=== PATIENT | female | born 1940 | race Caucasian/White ===

== ENCOUNTER 2016-12-12 13:20 | Inpatient (IN) ==
[2016-12-12] MEDS ORDERED: HYDROmorphone 2 MG/1 ML VIAL IV STA (13:52)
[2016-12-12] MEDS ORDERED: ONDANSETRON 4 MG/2 ML VIAL IV STA (13:52)
[2016-12-12] MEDS ORDERED: ONDANSETRON 4 MG/2 ML VIAL ONE (14:34)
[2016-12-12] MEDS ORDERED: HYDROmorphone 2 MG/1 ML VIAL ONE (14:34)
--- NOTE | 2016-12-12 14:39 | Emergency Department Note ---
IYolie Brittany, am scribing for, and in the presence of, Kyung Hill DO 13: 56. ISergio Debra, DO, personally performed the services described in this documentation, ascribed by Corrine Urbano in my presence, and it is both accurate and complete 438 . Arrival - Arrival Chief Complaint: Non-Specific Stated Complaint: PAIN ED Nursing Triage Note: PATIENT TO ROOM VIA EMS. PATIENT C/O PAIN ALL OVER. WHEN PATIENT WAS MOVED FROM THE STRETCHER TO THE PAIN SHE SCREAMED. SHE STATES THAT SHE HURTS FROM HER FEET ALL THE WAY UP. Mode of Arrival: Stretcher Limitations: No Limitations Source: Patient Time Seen by Provider: 12/12/16 13:45 - History of Present Illness HPI Narrative: This is a 76 y/o white female,who presents to the ED by EMS with c/o "pain all over". She states the pain started last night. She states the pain is worse in the right hip, but starts at her feet and moves into both hips. She denies falling or injuring herself. She states she has arthritis. She states the pain got worse when they moved her from the stretcher into the hospital bed. Pt has no other complaints/pain in the ED at this time. Pt has a PMHx of depression, HTN, anxiety, dyslipidemia, GERD, arthritis, and chronic pain. Pt denies a surgical Hx. Pt denies a family medical Hx. Pt denies a social Hx. Onset (ago): hour(s) (Started last night) Consistency: constant Severity: moderate, similar to previous episodes Allergies/Adverse Reactions: Allergies Allergy/AdvReac Type Severity Reaction Status Date / Time No Known Allergies Allergy Verified 12/12/16 13:34 Home Medications: Home Medications Medication Instructions Recorded Confirmed Type Albuterol Sulfate [Proair HFA] 2 puff INH Q4H PRN 10/21/14 05/29/16 History Aspirin [Ecotrin] 81 mg PO DAILY 10/21/14 05/29/16 History Duloxetine HCl [Cymbalta] 60 mg PO BID 10/21/14 05/29/16 History Lisinopril/Hydrochlorothiazide 1 each PO DAILY 10/21/14 05/29/16 History [Lisinopril-Hctz 20-25 mg Tab] Meloxicam [Mobic] 15 mg PO DAILY 10/21/14 05/29/16 History Pravastatin [Pravachol] 40 mg PO BEDTIME 10/21/14 05/29/16 History Sertraline [Zoloft] 150 mg PO DAILY 10/21/14 05/29/16 History Tramadol HCl [Tramadol Tab] 50 mg PO TID PRN 10/21/14 05/29/16 History Gabapentin 300 mg PO TID 04/19/15 05/29/16 History Pantoprazole Tab [Protonix Tab] 40 mg PO DAILY 04/19/15 05/29/16 History Review of System - Review of System 12 point system: reviewed and no additional remarkable complaints except as stated - Review of System Review of Systems: Pain all over, starts at her feet and goes into the hips Medical,Surgical,& Family Hx - Medical History Cardio: History of: Hypertension Psychological: History of: Anxiety Disorders, Depression Endocrine: History of: Dyslipidemia Gastrointestinal: History of: GERD Musculoskeletal: History of: Musculoskeletal Problems (chronic pain) - Social History Smoking Status: Smoker, status unknown Frequency of Alcohol Use: None Type of Drug Use: None Exam Vital Signs: Vital Signs Temperature 98.3 F 12/12/16 13:30 Pulse Rate 112 H 12/12/16 13:30 Respiratory Rate 20 12/12/16 13:30 Blood Pressure 153/92 12/12/16 13:30 O2 Sat by Pulse Oximetry 98 12/12/16 13:30
--- NOTE | 2016-12-12 14:44 | XRay Report ---
XR hip 5V BI w pelvis Indication: Hip pain. Comparison: None. Technique: AP pelvis with additional AP views of the left and right hip in internal and frog-leg rotation. Findings: Severe bilateral femoral acetabular joint degenerative changes are demonstrated with flattening of the superior femoral heads as well as sclerotic bony changes. No acute fracture demonstrated. Impression: 1. 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 12/12/2016 2:41 PM PROCEDURE INTERPRETED AT [facility] DEPARTMENT OF RADIOLOGY Final Report Signed by: Dr. Tremayne Fajardo
[2016-12-12] MEDS ORDERED: ONDANSETRON 4 MG/2 ML VIAL IV PRN (15:17)
[2016-12-12] MEDS ORDERED: ALBUTEROL/IPRATROPIUM 3 ML NEB RESP TX PRN (15:24)
--- NOTE | 2016-12-12 16:01 | Hospitalist History & Physical ---
Assessment and Plan - Time spent with patient Time spent with patient: Greater than 30 minutes (1) Pain, generalized Status: Acute Assessment and plan: 12/12/16 - Generalized severe pain exacerbated with any form of movement/re- positioning. Hip/Pelvic xray: Impression: Severe osteonecrosis is noted bilaterally affecting the femoral acetabular joints. Labs are pending and urine collection with results are pending. Will admit for observation. Will repeat labs. Will consult Dr Castillo. Will consult orthopedics for evaluation. Current Visit: Yes History of Present Illness Chief complaint: pain, generalized more sever in bilateral hips History of present illness: Ms. Machuca is a 76 year old white female presented to [facility] ED for c/o "pain all over", more in her hips and back. PMHx: depression, hypertension, GERD, Arthritis, Chronic Back Pain, dyslipidemia, anxiety disorder , hiatal hernia. She reports that she has severe "unbearable" pain when she moves even with the smallest movements of repositioning. She reports chronic back pain but this pain today is more all over, especially in both hips and it has been much worse for the past couple of days. She wanted to come to the ED last night but her phone was not working. She reports having an appointment scheduled with Dr Castillo for the 2nd week of December for further evaluation of her uncontrolled chronic back pain, she reports never seeing Dr Castillo before. She has been using a friends wheelchair for the past 5-6 months because she no longer can walk because "it hurts too bad". She reports living at home alone but has 2 daughters that live close and check on her. PCP: Dr Watson at [facility]. After further discussion with Dr Hill in ED and Dr Snider, it was agreed to admit patient for observation and further evaluation of pain. Home medication to be reviewed and reconciliation to follow. Home Medications Medication Instructions Recorded Confirmed Type Albuterol Sulfate [Proair HFA] 2 puff INH Q4H PRN 10/21/14 12/12/16 History Aspirin [Ecotrin] 81 mg PO DAILY 10/21/14 12/12/16 History Lisinopril/Hydrochlorothiazide 1 each PO DAILY 10/21/14 12/12/16 History [Lisinopril-Hctz 20-25 mg Tab] Gabapentin 300 mg PO TID 04/19/15 12/12/16 History Pantoprazole Tab [Protonix Tab] 40 mg PO DAILY 04/19/15 12/12/16 History Citalopram Hydrobromide 20 mg PO DAILY 12/12/16 12/12/16 History [Citalopram HBr] DULoxetine [Cymbalta] 30 mg PO BID 12/12/16 12/12/16 History rOPINIRole [Requip] 4 mg PO BEDTIME PRN 12/12/16 12/12/16 History Allergies Allergy/AdvReac Type Severity Reaction Status Date / Time No Known Allergies Allergy Verified 12/12/16 13:34 Medical,Surgical,& Family Hx - Medical History Cardio: History of: Hypertension Psychological: History of: Anxiety Disorders, Depression Endocrine: History of: Dyslipidemia Gastrointestinal: History of: GERD Musculoskeletal: History of: Musculoskeletal Problems (chronic pain) - Social History Smoking Status: Smoker, status unknown Frequency of Alcohol Use: None Type of Drug Use: None Lives With:: Alone Functional capacity: wheelchair bound Review of systems: ROS completed and pertinent positives and negatives in HPI. Exam - Constitutional Vitals: Period Temp Pulse Resp BP Sys/Mckeon Pulse Ox Last 24 Hr 98.3 F 112 16-20 153/92 97-98 General appearance: mild distress (with repositioning/movement causes pain) - Head Head exam: Present: normal inspection - Eye Eye exam: Present: EOMI Pupils: Present: OVIDIO - Neck Neck exam: Present: normal inspection. Absent: thyromegaly - Respiratory Respiratory exam: Present: clear to auscultation bilaterally. Absent: stridor, wheezes - Cardiovascular Cardiovascular exam: Present: regular rate and rhythm - GI/Abdominal GI/Abdominal exam: Present: normal bowel sounds, soft. Absent: tenderness, rebound - Extremities Exam Extremities exam: Present: full ROM. Absent: edema - Neurological Exam Neurological exam: Present: alert, oriented X3, CN II-XII intact - Psychiatric Psychiatric exam: Present: normal affect, normal mood - Skin Skin exam: Present: normal color, warm, dry Results - Labs Lab Results: I have reviewed the past 24 hour labs Labs: Labs are pending results will review results and adjust any necessary treatments Urine pending collection and results will review results and adjust any necessary treatment - Diagnostic Findings Procedure: X-ray: report reviewed by me (Severe osteonecrosis is noted bilaterally affecting the femoral acetabular joints)
--- NOTE | 2016-12-12 16:15 | EKG Report ---
Stationary ECG Study [facility] ER Test Date: 12/12/2016 4:13:53 PM Pat Name: RENEA ROSALES Department: Room: Gender: F Clin Asst: : 1940 Requested by: Susan Beard Order Number: [id number] Reading MD: RIDGE SAMSON Intervals [place] Rate: 77 P: 51 NH: 176 QRS: 14 QRSD: 93 T: 39 QT: 364 QTc: 396 Interpretive Statements SINUS RHYTHM LOW QRS VOLTAGE IN PRECORDIAL LEADS Electronically Signed On 12-12-16 16:17:38 CDT by RIDGE SAMSON [email or web address]
[2016-12-12 16:47] LABS: Risk Ratio 3.78; VLDL CHOLESTEROL 15.4 MG/DL
[2016-12-12] MEDS ORDERED: ALBUTEROL 2.5 MG/3 ML NEB RESP TX PRN (16:53)
[2016-12-12] MEDS ORDERED: rOPINIRole 4 MG TABLET PO PRN (16:53)
[2016-12-12] MEDS: MORPHINE 2 MG/1 ML SYRINGE IV PRN ×2 (17:20→22:01)
[2016-12-12] MEDS: SODIUM CHLORIDE 0.9% 1,000 ML IV SCH (17:26)
[2016-12-12 17:43] LABS: Basophils % 0.4 % (0.0-0.8); Eosinophils # 0.1 10*3/uL (0.0-0.87); Eosinophils % 1.7 % (0.00-10.9); Hematocrit 33.6 VOL% (35.7-47.0); Hemoglobin 11.6 GM/DL (12.0-16.0); Immature Granulocytes % 0.3 %; Immature Granulocytes Absolute 0.02 #; Lymphocytes # 1.5 10*3/uL (1.4-4.0); Lymphocytes % 21.2 % (21.3-54.2); Mean Corpuscular HGB Conc 34.5 GM/DL (32-36); Mean Corpuscular Hemoglobin 30 PG (27-34); Mean Corpuscular Volume 88.2 FL (87-102); Mean Platelet Volume 9.7 FL (9.6-12.0); Monocytes # 0.6 10*3/uL (0.11-0.8); Monocytes % 8.8 % (1.7-12.7); Neutrophils # 4.7 10*3/uL (1.4-7.4); Neutrophils % 67.6 % (38.7-73.9); Platelet Count 228 T/CUMM (130-400); Red Blood Count 3.81 MC/CUMM (3.8-5.5); Red Cell Distribution Width 12.3 % (9.3-17.3)
[2016-12-12 18:09] LABS: Alanine Aminotransferase 10 U/L (13-56); Albumin 3.4 G/DL (3.4-5.0); Alkaline Phosphatase 92 U/L (45-117); Aspartate Amino Transferase 8 U/L (0-37); Bilirubin,Total < 0.39 MG/DL (0.2-1.0); Blood Urea Nitrogen 22 MG/DL (7-18); Glucose 113 MG/DL (74-106); Osmolality,Calculated 273.1 MOS/KG (273-304); Potassium 4.1 MMOL/L (3.5-5.1); Sodium 135 MMOL/L (136-145); Total Protein 6.8 G/DL (6.4-8.3)
[2016-12-12 20:32] LABS: Apearance,Urine CLEAR (Clear); Bilirubin,Urine Negative (Negative); Blood, Urine Negative (Negative); Calcium Oxalate Crystals,Urine Occasional /HPF (Few); Glucose,Urine (UA) Negative (Negative); Ketones,Urine Negative (Negative); Mucus,Urine Occasional /LPF (Occasional); Nitrite,Urine Negative (Negative); Protein,Urine 30 MG/DL; RBC,Urine 3 /HPF (0-4); Squamous Epithelial Cell,Urine Occasional /HPF (0-10); Urine Color Yellow (Yellow); Urine Specific Gravity 1.021 (1.001-1.035); WBC,Urine 17 /HPF (0-6)
[2016-12-12] MEDS: GABAPENTIN 300 MG CAPSULE PO SCH (21:25)
[2016-12-13] MEDS: MORPHINE 2 MG/1 ML SYRINGE IV PRN ×3 (02:37→21:40)
[2016-12-13] MEDS: SODIUM CHLORIDE 0.9% 1,000 ML IV SCH (05:33)
[2016-12-13 06:24] LABS: Basophils % 0.8 % (0.0-0.8); Eosinophils # 0.2 10*3/uL (0.0-0.87); Eosinophils % 3.8 % (0.00-10.9); Hematocrit 28.6 VOL% (35.7-47.0); Hemoglobin 9.7 GM/DL (12.0-16.0); Immature Granulocytes % 0.2 %; Immature Granulocytes Absolute 0.01 #; Lymphocytes # 1.3 10*3/uL (1.4-4.0); Lymphocytes % 26.4 % (21.3-54.2); Mean Corpuscular HGB Conc 33.9 GM/DL (32-36); Mean Corpuscular Hemoglobin 30 PG (27-34); Mean Corpuscular Volume 89.7 FL (87-102); Mean Platelet Volume 9.9 FL (9.6-12.0); Monocytes # 0.6 10*3/uL (0.11-0.8); Monocytes % 12.4 % (1.7-12.7); Neutrophils # 2.8 10*3/uL (1.4-7.4); Neutrophils % 56.4 % (38.7-73.9); Platelet Count 183 T/CUMM (130-400); Red Blood Count 3.19 MC/CUMM (3.8-5.5); Red Cell Distribution Width 12.2 % (9.3-17.3)
--- NOTE | 2016-12-13 06:45 | Pain Management Consult Note ---
Assessment and Plan (1) Severe hip pain Status: Acute Assessment and plan: Patient has severe hip pain due to osteonecrosis in both hips. We will reevaluate after orthopedics have seen her I would continue current medications for pain Current Visit: Yes History of Present Illness History of present illness: Ms. Machuca is a 76 year old female Patient has severe pain in both hips with x-rays showing severe osteonecrosis in both hips. Patient is scheduled to be seen by orthopedics today I would be interested in guidance and if they want to proceed with further treatment as far as injections or surgery I will continue current pain medications for now Home Medications Medication Instructions Recorded Confirmed Type Albuterol Sulfate [Proair HFA] 2 puff INH Q4H PRN 10/21/14 12/12/16 History Aspirin [Ecotrin] 81 mg PO DAILY 10/21/14 12/12/16 History Lisinopril/Hydrochlorothiazide 1 each PO DAILY 10/21/14 12/12/16 History [Lisinopril-Hctz 20-25 mg Tab] Gabapentin 300 mg PO TID 04/19/15 12/12/16 History Pantoprazole Tab [Protonix Tab] 40 mg PO DAILY 04/19/15 12/12/16 History Citalopram Hydrobromide 20 mg PO DAILY 12/12/16 12/12/16 History [Citalopram HBr] DULoxetine [Cymbalta] 30 mg PO BID 12/12/16 12/12/16 History rOPINIRole [Requip] 4 mg PO BEDTIME PRN 12/12/16 12/12/16 History Allergies Allergy/AdvReac Type Severity Reaction Status Date / Time No Known Allergies Allergy Verified 12/12/16 13:34 Medical,Surgical,& Family Hx - Medical History Cardio: History of: Hypertension Psychological: History of: Anxiety Disorders, Depression Endocrine: History of: Dyslipidemia Gastrointestinal: History of: GERD Musculoskeletal: History of: Musculoskeletal Problems (chronic pain) - Social History Smoking Status: Smoker, status unknown Frequency of Alcohol Use: None Type of Drug Use: None 12 point system: reviewed and no additional remarkable complaints except as stated Exam - Constitutional Vitals: Period Temp Pulse Resp BP Sys/Mckeon Pulse Ox Last 24 Hr 97.0 F-98.6 F 76-112 16-20 105-153/57-92 96-100 General appearance: mild distress - Head Head exam: Present: normal inspection - Eye Eye exam: Present: EOMI Pupils: Present: OVIDIO - ENT ENT exam: Present: normal exam Ear exam: Present: intact Mouth exam: Present: normal external inspection - Neck Neck exam: Present: normal inspection - Respiratory Respiratory exam: Present: clear to auscultation bilaterally - Cardiovascular Cardiovascular exam: Present: RRR - GI/Abdominal GI/Abdominal exam: Present: normal bowel sounds - Expanded Left Lower Hip exam: Present: tenderness Upper Leg exam: Present: swelling Knee exam: Present: normal inspection Lower leg exam: Present: normal inspection Ankle exam: Present: normal inspection Gait: Present: observed and limited by pain Right Lower Hip exam: Present: tenderness Upper Leg exam: Present: normal inspection Knee exam: Present: normal inspection Lower leg exam: Present: normal inspection Ankle exam: Present: normal inspection Foot/Toe exam: Present: tenderness Neuro vascular tendon exam: Present: decreased fine/light touch Gait: Present: observed and limited by pain - Back Exam Back exam: Present: vertebral tenderness - Neurological Exam Neurological exam: Present: abnormal gait Results - Labs CBC & BMP: 12/13/16 04:49 12/12/16 16:14 Lab Results: I have reviewed the past 24 hour labs
[2016-12-13 06:55] LABS: Albumin 2.7 G/DL (3.4-5.0); Bilirubin,Total 0.4 MG/DL (0.2-1.0); Calcium 8.5 MG/DL (8.5-10.1); Magnesium 1.9 MG/DL (1.8-2.4); Osmolality,Calculated 279.7 MOS/KG (273-304); Phosphorous 3.3 MG/DL (2.5-4.9); Potassium 3.9 MMOL/L (3.5-5.1); Total Protein 5.6 G/DL (6.4-8.3)
--- NOTE | 2016-12-13 08:29 | XRay Report ---
XR chest 1V portable Indication: COPD Comparison: Chest x-ray dated April 19, 2015 Technique: Single frontal view of the chest. Findings: The cardiomediastinal silhouette is stable in configuration. Mild linear bibasilar atelectasis/scarring. Visualized osseous and surrounding soft tissue structures appear grossly unchanged. IMPRESSION: As above. PROCEDURE INTERPRETED AT [facility] DEPARTMENT OF RADIOLOGY Final Report Signed by: Dr Dmitriy Choi
--- NOTE | 2016-12-13 08:32 | Orthopedic Consult Note ---
History of Present Illness Chief complaint: Bilateral hip pain, inability to walk History of present illness: Ms. Machuca is a 76 year old female who was admitted for intractable bilateral hip pain and inability to walk. The patient states that she has been wheelchair-bound for the last 4 months. She has not had any history of injury. She has had problems for many many years. She lives alone by herself with family nearby. She had been using a quad cane or walker for several years. Home Medications Medication Instructions Recorded Confirmed Type Albuterol Sulfate [Proair HFA] 2 puff INH Q4H PRN 10/21/14 12/12/16 History Aspirin [Ecotrin] 81 mg PO DAILY 10/21/14 12/12/16 History Lisinopril/Hydrochlorothiazide 1 each PO DAILY 10/21/14 12/12/16 History [Lisinopril-Hctz 20-25 mg Tab] Gabapentin 300 mg PO TID 04/19/15 12/12/16 History Pantoprazole Tab [Protonix Tab] 40 mg PO DAILY 04/19/15 12/12/16 History Citalopram Hydrobromide 20 mg PO DAILY 12/12/16 12/12/16 History [Citalopram HBr] DULoxetine [Cymbalta] 30 mg PO BID 12/12/16 12/12/16 History rOPINIRole [Requip] 4 mg PO BEDTIME PRN 12/12/16 12/12/16 History Allergies Allergy/AdvReac Type Severity Reaction Status Date / Time No Known Allergies Allergy Verified 12/12/16 13:34 12 point system: reviewed and no additional remarkable complaints except as stated Medical,Surgical,& Family Hx - Medical History Cardio: History of: Hypertension Psychological: History of: Anxiety Disorders, Depression Endocrine: History of: Dyslipidemia Gastrointestinal: History of: GERD Musculoskeletal: History of: Musculoskeletal Problems (chronic pain) - Social History Smoking Status: Smoker, status unknown Frequency of Alcohol Use: None Type of Drug Use: None Exam - Constitutional Vitals: Period Temp Pulse Resp BP Sys/Mckeon Pulse Ox Last 24 Hr 97 F-98.6 F 70-112 16-20 105-153/53-92 96-100 Alert and oriented Bilateral lower extremities were examined. Skin, sensation,motors and pulses grossly intact. The patient has severe pain with any motion of her hips. She has positioned herself with pillows under both legs while in bed. X-rays pelvis and bilateral hips were reviewed. They demonstrate severe hip osteoarthritis with flattening of the femoral head. This is concerning for possible avascular necrosis. Results - Labs CBC & BMP: 12/13/16 04:49 12/13/16 04:49 Assessment and Plan (1) Avascular necrosis of bones of both hips Status: Acute Current Visit: Yes (2) Arthrosis of hip Status: Acute Current Visit: Yes
[2016-12-13 09:23] LABS: PT Patient Result 10.4 SECS; Partial Thromboplastin Time 30.6 SECS (0-40)
[2016-12-13] MEDS: ASPIRIN EC 81 MG TABLET PO SCH (09:50)
[2016-12-13] MEDS: PANTOPRAZOLE 40 MG TABLET PO SCH (09:50)
[2016-12-13] MEDS: LISINOPRIL/HCTZ 20-25 MG TABLET PO SCH (09:50)
[2016-12-13] MEDS: CITALOPRAM 20 MG TABLET PO SCH (09:50)
[2016-12-13] MEDS: GABAPENTIN 300 MG CAPSULE PO SCH ×3 (09:50→21:39)
[2016-12-13] MEDS: DEXTROSE 5% LACTATED RINGERS 1,000 ML IV SCH ×2 (17:05→23:17)
--- NOTE | 2016-12-13 18:10 | Hospitalist Progress Note ---
Hospitalist: Subjective Interval history: Patient reports that her hip pain is better controlled today Exam - Constitutional Vitals: Period Temp Pulse Resp BP Sys/Mckeon Pulse Ox Last 24 Hr 97 F-98.6 F 69-89 18-18 112-132/53-74 96-100 Exam: General: No Acute Distress HEENT: Normocephalic, atraumatic, Extra ocular movements intact Neck: Supple, No JVD Chest: Clear to auscultation B/L CV: S1 + S2 audible without murmur, gallop or rub Abd: soft, NT, Non-distended, BS + Ext: No edema Skin: No purpura, bruising or rash Rheumatologic: No Joint deformities Neurologic: o gross sensory deficits Results - Labs CBC & BMP: 12/13/16 04:49 12/13/16 04:49 - Impressions Assessment and Plan (1) Avascular necrosis of bones of both hips Status: Acute Current Visit: Yes (2) Osteoarthritis of hip Status: Acute Current Visit: Yes
[2016-12-14] MEDS: MORPHINE 2 MG/1 ML SYRINGE IV PRN ×3 (02:59→18:59)
[2016-12-14] MEDS: DEXTROSE 5% LACTATED RINGERS 1,000 ML IV SCH ×4 (03:07→19:26)
--- NOTE | 2016-12-14 05:34 | Pain Management Progress Note ---
Assessment and Plan (1) Severe hip pain Status: Acute Assessment and plan: Patient has severe hip pain due to osteonecrosis in both hips. We will reevaluate after orthopedics have seen her I would continue current medications for pain 12/14 continue current medications for pain at this time Current Visit: Yes Pain - Subjective Interval history: Patient is still complaining of severe bilateral hip pain. Patient has been evaluated with orthopedic for avascular necrosis. Awaiting further treatment recommendation from orthopedics. Exam - Constitutional Vitals: Period Temp Pulse Resp BP Sys/Mckeon Pulse Ox Last 24 Hr 97 F-97.9 F 69-77 17-20 114-151/53-74 93-100 General appearance: severe distress - Head Head exam: Present: normal inspection - Eye Eye exam: Present: EOMI Pupils: Present: OVIDIO - ENT ENT exam: Present: normal exam Ear exam: Present: intact Mouth exam: Present: normal external inspection - Neck Neck exam: Present: normal inspection - Respiratory Respiratory exam: Present: clear to auscultation bilaterally - Cardiovascular Cardiovascular exam: Present: RRR - GI/Abdominal GI/Abdominal exam: Present: normal bowel sounds - Extremities Exam Extremities exam: Present: other (Patient is tender bilateral hip areas) - Back Exam Back exam: Present: vertebral tenderness - Neurological Exam Neurological exam: Present: abnormal gait - Skin Skin exam: Present: normal color Results - Labs CBC & BMP: 12/13/16 04:49 12/13/16 04:49 Lab Results: I have reviewed the past 24 hour labs
--- NOTE | 2016-12-14 07:14 | Orthopedic Progress Note ---
Assessment and Plan (1) Avascular necrosis of bones of both hips Status: Acute Current Visit: Yes (2) Arthrosis of hip Status: Acute Current Visit: Yes Orthopedics - Subjective Interval history: Ms Machuca is still very uncomfortable with both of her hips. Severe pain with logroll. She is keeping her hips in a flexed position. Bilateral lower extremities are neurovascularly unchanged. Impression: Intractable bilateral hip pain secondary to severe hip arthrosis and avascular necrosis Plan: We are going to proceed with right total hip arthroplasty this morning. Risks benefits and rationale for the procedure were discussed. I discussed the importance of complying with physical therapy postoperatively and the eventual need of addressing her left hip. Exam - Constitutional Vitals: Period Temp Pulse Resp BP Sys/Mckeon Pulse Ox Last 24 Hr 97 F-97.9 F 69-77 17-20 114-151/53-74 93-100 Results - Labs CBC & BMP: 12/13/16 04:49 12/13/16 04:49
[2016-12-14] MEDS: ASPIRIN EC 81 MG TABLET PO SCH (08:03)
[2016-12-14] MEDS: GABAPENTIN 300 MG CAPSULE PO SCH ×3 (08:04→21:00)
[2016-12-14] MEDS: CITALOPRAM 20 MG TABLET PO SCH (08:04)
[2016-12-14] MEDS: LISINOPRIL/HCTZ 20-25 MG TABLET PO SCH (08:05)
[2016-12-14] MEDS: PANTOPRAZOLE 40 MG TABLET PO SCH (08:05)
[2016-12-14] MEDS ORDERED: VANCOMYCIN INJ 1,000 MG in SODIUM CHLORIDE 0.9% 250 ML IV ONE ×2 (08:26→21:43)
[2016-12-14] MEDS ORDERED: BACITRACIN OINT 0.9 GM PACK TOP ONE (11:12)
[2016-12-14] MEDS ORDERED: TRANEXAMIC ACID 1,000 MG/10 ML VIAL IV ONE (11:12)
[2016-12-14 13:37] LABS: Apearance,Urine CLEAR (Clear); Bilirubin,Urine Negative (Negative); Blood, Urine Small mg/dL (Negative); Glucose,Urine (UA) Negative (Negative); Ketones,Urine Negative (Negative); Nitrite,Urine Negative (Negative); Protein,Urine Negative; RBC,Urine <1 /HPF (0-4); Squamous Epithelial Cell,Urine Occasional /HPF (0-10); Urine Color Straw (Yellow); Urine Specific Gravity 1.005 (1.001-1.035); Urine Urobilinogen < 2.0 EU/DL (0.2-1.0); WBC,Urine 1 /HPF (0-6)
[2016-12-14] MEDS ORDERED: diphenhydrAMINE CAP 25 MG CAPSULE PO PRN (13:42)
[2016-12-14] MEDS ORDERED: MORPHINE 2 MG/1 ML SYRINGE IV PRN (13:42)
--- NOTE | 2016-12-14 13:47 | Operative Note ---
Date of procedure: 12/14/16 Procedure: DIAGNOSIS: Bilateral hip avascular necrosis, hip arthrosis PROCEDURE: Right total hip arthroplasty (CPT#55220) SURGEON: Tawanna ANESTHESIA: Spinal PROCEDURE and FINDINGS: After adequate anesthesia was induced, the patient was placed in lateral decubitus position. Left lower extremities prepped and draped in usual sterile fashion. Posteriolateral approach to the hip was made. Skin, subcutaneous tissue and deep fascia was incised longitudinally. Gluteus michael muscle belly was split in line with its fibers. Piriformis, external rotators and capsule were taken down as a single layer as an inverted L shaped capsulotomy. Hip was dislocated. Templated femoral neck cut was made. Acetabulum was prepared by sequentially reaming to 55 mm. A 56 mm Continuum acetabular shell was press-fit with excellent stability. 1 6.5 millimeter screw was placed with an excellent bite. 32 elevated longevity liner was placed with a dome hole plug. Femur was prepared sequentially with the box osteotome, canal finder and sequential broaches to 14. Components were trialed. A size 14 Versys fiber metal tapered stem was press-fit. A 32+0 mm head was placed. The component was stable posteriorly and anteriorly. Capsule was repaired with #5 Tycron to the greater trochanter. Deep fascia was closed with 0 Vicryl [id number] suture. Subcutaneous tissue was closed deep with a 2-0 Vicryl runner and superficially with 3-0 interrupted buried sutures. Skin was closed with diana. Bacitracin and a sterile occlusive dressing was applied. Surgeon / Physician: Shawn Stacy Jr. Results - Labs CBC & BMP: 12/13/16 04:49 12/13/16 04:49 Discharge Plan - Discharge Medications No Action Albuterol Sulfate [Proair HFA] 2 puff INH Q4H PRN PRN Reason: Shortness Of Breath/Wheezing Lisinopril/Hydrochlorothiazide [Lisinopril-Hctz 20-25 mg Tab] 1 each PO DAILY Aspirin [Ecotrin] 81 mg PO DAILY Gabapentin 300 mg PO TID Pantoprazole Tab [Protonix Tab] 40 mg PO DAILY Citalopram Hydrobromide [Citalopram HBr] 20 mg PO DAILY rOPINIRole [Requip] 4 mg PO BEDTIME PRN PRN Reason: RLS DULoxetine [Cymbalta] 30 mg PO BID - Follow Up or Referral - Forms/Instructions
[2016-12-14] MEDS ORDERED: MIDAZOLAM 2 MG/2 ML VIAL ONE (14:06)
[2016-12-14] MEDS ORDERED: PROPOFOL 200 MG/20 ML VIAL IV ONE (14:06)
[2016-12-14] MEDS ORDERED: fentaNYL 100 MCG/2 ML VIAL ONE (14:06)
--- NOTE | 2016-12-14 14:46 | Orthopedic Progress Note ---
Assessment and Plan (1) Avascular necrosis of bones of both hips Status: Acute Current Visit: Yes (2) Arthrosis of hip Status: Acute Current Visit: Yes Orthopedics - Subjective Interval history: Comfortable postop. Her spinal is still working. Continue per protocol. Findings of surgery were discussed with the patient. Exam - Constitutional Vitals: Period Temp Pulse Resp BP Sys/Mckeon Pulse Ox Last 24 Hr 97.2 F-98.4 F 65-77 16-20 100-151/43-74 93-100 Results - Labs CBC & BMP: 12/13/16 04:49 12/13/16 04:49
[2016-12-14] MEDS: KETOROLAC 15 MG/1 ML VIAL IV SCH ×2 (14:50→21:00)
--- NOTE | 2016-12-14 15:07 | XRay Report ---
Right hip portable one view. Indication: Hip replacement. Comparison: December 12, 2016. Surgical skin diana project over the soft tissues. There has been a total joint replacement. The hardware is in good position. No evidence of acute fracture or dislocation. Impression: Expected postoperative appearance. PROCEDURE INTERPRETED AT [facility] DEPARTMENT OF RADIOLOGY Final Report Signed by: Dr. Therese Christine
--- NOTE | 2016-12-14 15:21 | Anesthesia Post-Op ---
Anesthesia Post OP - Post Ansesthetic Evaluation Patient seen in post op: Yes Resp: within normal limits CV: within normal limits Mental: within normal limits Temp: within normal limits [id number]: within normal limits Nausea and Vomiting: within normal limits Pain: within normal limits
[2016-12-14] MEDS: ACETAMINOPHEN 500 MG TABLET PO SCH (16:55)
--- NOTE | 2016-12-14 18:29 | Hospitalist Progress Note ---
Hospitalist: Subjective Interval history: Patient is doing well after her orthopedic surgery today. Exam - Constitutional Vitals: Period Temp Pulse Resp BP Sys/Mckeon Pulse Ox Last 24 Hr 97.2 F-98.4 F 65-77 16-20 100-151/43-74 93-100 Exam: General: No Acute Distress HEENT: Normocephalic, atraumatic, Extra ocular movements intact Neck: Supple, No JVD Chest: Clear to auscultation B/L CV: S1 + S2 audible without murmur, gallop or rub Abd: soft, NT, Non-distended, BS + Ext: No edema Skin: No purpura, bruising or rash Rheumatologic: No Joint deformities Neurologic: o gross sensory deficits Results - Labs CBC & BMP: 12/13/16 04:49 12/13/16 04:49 - Impressions - Impressions Assessment and Plan (1) Avascular necrosis of bones of both hips status post surgery Status: Acute Current Visit: Yes (2) Osteoarthritis of hip Status: Acute Current Visit: Yes
[2016-12-15] MEDS: ACETAMINOPHEN 500 MG TABLET PO SCH ×3 (00:14→11:23)
[2016-12-15] MEDS: KETOROLAC 15 MG/1 ML VIAL IV SCH ×2 (01:59→08:12)
[2016-12-15 05:31] LABS: Basophils % 0.4 % (0.0-0.8); Eosinophils # 0.1 10*3/uL (0.0-0.87); Eosinophils % 2.2 % (0.00-10.9); Hematocrit 25.7 VOL% (35.7-47.0); Hemoglobin 8.7 GM/DL (12.0-16.0); Immature Granulocytes % 0.4 %; Immature Granulocytes Absolute 0.02 #; Lymphocytes % 18.7 % (21.3-54.2); Mean Corpuscular HGB Conc 33.9 GM/DL (32-36); Mean Corpuscular Hemoglobin 30 PG (27-34); Mean Corpuscular Volume 89.5 FL (87-102); Mean Platelet Volume 9.9 FL (9.6-12.0); Monocytes # 0.6 10*3/uL (0.11-0.8); Monocytes % 10.4 % (1.7-12.7); Neutrophils # 3.7 10*3/uL (1.4-7.4); Neutrophils % 67.9 % (38.7-73.9); Platelet Count 191 T/CUMM (130-400); Red Blood Count 2.87 MC/CUMM (3.8-5.5); White Blood Count 5.4 T/CUMM (4-12)
--- NOTE | 2016-12-15 05:42 | Pain Management Progress Note ---
Assessment and Plan (1) Severe hip pain Status: Acute Assessment and plan: Patient has severe hip pain due to osteonecrosis in both hips. We will reevaluate after orthopedics have seen her I would continue current medications for pain 12/14 continue current medications for pain at this time 12/15 continue the current pain treatment regimen at this time Current Visit: Yes Pain - Subjective Interval history: Patient underwent orthopedic surgery for avascular necrosis of the hip yesterday and is noted to be stable no acute changes are noted in her condition and has reasonable pain management control at this time Exam - Constitutional Vitals: Period Temp Pulse Resp BP Sys/Mckeon Pulse Ox Last 24 Hr 96.4 F-100.1 F 63-102 16-20 90-123/43-70 94-100 General appearance: no acute distress - Head Head exam: Present: normal inspection - Eye Eye exam: Present: EOMI Pupils: Present: OVIDIO - ENT ENT exam: Present: normal exam Ear exam: Present: [place], intact Mouth exam: Present: normal external inspection - Neck Neck exam: Present: normal inspection - Respiratory Respiratory exam: Present: clear to auscultation bilaterally - Cardiovascular Cardiovascular exam: Present: RRR - Extremities Exam Extremities exam: Present: other (Tender in both hip.) - Back Exam Back exam: Present: vertebral tenderness - Neurological Exam Neurological exam: Present: abnormal gait Results - Labs CBC & BMP: 12/13/16 04:49 12/13/16 04:49 Lab Results: I have reviewed the past 24 hour labs
[2016-12-15 05:58] LABS: Potassium 4.3 MMOL/L (3.5-5.1)
[2016-12-15 06:33] LABS: Hypochromasia Slight; Macrocytosis 1+; Target Cells Slight
[2016-12-15] MEDS: MORPHINE 2 MG/1 ML SYRINGE IV PRN (06:40)
[2016-12-15] MEDS: DEXTROSE 5% LACTATED RINGERS 1,000 ML IV SCH (06:45)
--- NOTE | 2016-12-15 07:42 | Orthopedic Progress Note ---
Assessment and Plan (1) Avascular necrosis of bones of both hips Status: Acute Current Visit: Yes (2) Arthrosis of hip Status: Acute Current Visit: Yes Orthopedics - Subjective Interval history: Comfortable. She is complaining she had a rough night. Dressing is clean, dry and intact. Right lower extremities neurovascularly unchanged. Plan: Mobilize with physical therapy. I anticipate that she is going to be slow to progress and advised to swing bed placement. Exam - Constitutional Vitals: Period Temp Pulse Resp BP Sys/Mckeon Pulse Ox Last 24 Hr 96.4 F-100.1 F 63-102 16-19 90-123/43-70 94-100 Results - Labs CBC & BMP: 12/15/16 04:35 12/15/16 04:35
[2016-12-15] MEDS: PANTOPRAZOLE 40 MG TABLET PO SCH (08:11)
[2016-12-15] MEDS: CITALOPRAM 20 MG TABLET PO SCH (08:11)
[2016-12-15] MEDS: GABAPENTIN 300 MG CAPSULE PO SCH ×3 (08:11→20:22)
[2016-12-15] MEDS: LISINOPRIL/HCTZ 20-25 MG TABLET PO SCH (08:12)
[2016-12-15] MEDS: FONDAPARINUX 2.5 MG/0.5 ML SYRINGE SUBCUT SCH (08:12)
--- NOTE | 2016-12-15 15:23 | Hospitalist Progress Note ---
Assessment and Plan (1) Avascular necrosis of bones of both hips Status: Acute Assessment and plan: Status post total hip replacement. No new events today. Current Visit: Yes Hospitalist: Subjective Interval history: The patient is resting in bed. She does not complain of chest pain or palpitations. The patient has pain in the operative side hip. Exam - Constitutional Vitals: Period Temp Pulse Resp BP Sys/Mckeon Pulse Ox Last 24 Hr 96.4 F-100.1 F 66-102 17-18 90-122/45-60 94-100 Exam: The patient is in moderate distress. The chest is clear and heart has regular rate and rhythm Abdomen soft Results - Labs CBC & BMP: 12/15/16 04:35 12/15/16 04:35 Lab Results: I have reviewed the past 24 hour labs
[2016-12-15] MEDS: CELECOXIB 200 MG CAPSULE PO SCH (20:22)
[2016-12-16 05:43] LABS: Basophils % 0.4 % (0.0-0.8); Eosinophils # 0.2 10*3/uL (0.0-0.87); Hematocrit 23.8 VOL% (35.7-47.0); Immature Granulocytes % 0.4 %; Immature Granulocytes Absolute 0.02 #; Lymphocytes % 17.7 % (21.3-54.2); Mean Corpuscular HGB Conc 33.6 GM/DL (32-36); Mean Corpuscular Hemoglobin 30 PG (27-34); Mean Corpuscular Volume 89.1 FL (87-102); Monocytes # 0.6 10*3/uL (0.11-0.8); Monocytes % 11.5 % (1.7-12.7); Neutrophils # 3.7 10*3/uL (1.4-7.4); Platelet Count 187 T/CUMM (130-400); Red Blood Count 2.67 MC/CUMM (3.8-5.5); Red Cell Distribution Width 12.2 % (9.3-17.3); White Blood Count 5.6 T/CUMM (4-12)
--- NOTE | 2016-12-16 05:46 | Pain Management Progress Note ---
Assessment and Plan (1) Severe hip pain Status: Acute Assessment and plan: Patient has severe hip pain due to osteonecrosis in both hips. We will reevaluate after orthopedics have seen her I would continue current medications for pain 12/14 continue current medications for pain at this time 12/15 continue the current pain treatment regimen at this time 12/16 recommend to continue current medications for pain until transferred or discharged Current Visit: Yes Pain - Subjective Interval history: Patient is doing well since her hip surgery and pain seems to be adequately controlled at this time Exam - Constitutional Vitals: Period Temp Pulse Resp BP Sys/Mckeon Pulse Ox Last 24 Hr 95.9 F-100.4 F 66-89 16-18 99-118/46-64 91-100 General appearance: no acute distress - Head Head exam: Present: normal inspection - Eye Eye exam: Present: EOMI Pupils: Present: OVIDIO - ENT ENT exam: Present: normal exam Ear exam: Present: [place] Mouth exam: Present: normal external inspection - Neck Neck exam: Present: normal inspection - Respiratory Respiratory exam: Present: clear to auscultation bilaterally - Cardiovascular Cardiovascular exam: Present: RRR - GI/Abdominal GI/Abdominal exam: Present: normal bowel sounds - Extremities Exam Extremities exam: Present: other (Tenderness over both hip areas) - Back Exam Back exam: Present: vertebral tenderness - Neurological Exam Neurological exam: Present: abnormal gait Results - Labs CBC & BMP: 12/16/16 04:33 12/15/16 04:35 Lab Results: I have reviewed the past 24 hour labs
[2016-12-16 06:12] LABS: Eosinophils 8 % (0-10); Hypochromasia 1+; Lymphocytes 20 % (20-55); Microcytosis 1+; Segmented Neutrophils 63 % (50-85); Total Cells Counted 100
[2016-12-16 06:13] LABS: Ovalocytes Slight; Platelet Estimate Adequate
[2016-12-16] MEDS ORDERED: SODIUM CHLORIDE 0.9% 250 ML IV PRN (07:52)
--- NOTE | 2016-12-16 08:03 | Orthopedic Progress Note ---
Assessment and Plan (1) Avascular necrosis of bones of both hips Status: Acute Current Visit: Yes (2) Arthrosis of hip Status: Acute Current Visit: Yes Orthopedics - Subjective Interval history: Ms Machuca is mobilizing slowly. NV ok. Dressing dry. Transfuse 2u for acute blood loss on top of chronic anemia. She'll need swing bed placement given slow mobilization. Exam - Constitutional Vitals: Period Temp Pulse Resp BP Sys/Mckeon Pulse Ox Last 24 Hr 95.9 F-100.4 F 73-89 16-18 99-118/46-64 91-100 Results - Labs CBC & BMP: 12/16/16 04:33 12/15/16 04:35 Specialty Discharge - Follow Up or Referrals Follow up with: Shawn Stacy Jr., MD [Physician] -
[2016-12-16] MEDS: LISINOPRIL/HCTZ 20-25 MG TABLET PO SCH (09:16)
[2016-12-16] MEDS: FONDAPARINUX 2.5 MG/0.5 ML SYRINGE SUBCUT SCH (09:16)
[2016-12-16] MEDS: CITALOPRAM 20 MG TABLET PO SCH (09:16)
[2016-12-16] MEDS: GABAPENTIN 300 MG CAPSULE PO SCH ×3 (09:16→20:58)
[2016-12-16] MEDS: CELECOXIB 200 MG CAPSULE PO SCH (09:16)
[2016-12-16] MEDS: PANTOPRAZOLE 40 MG TABLET PO SCH (09:16)
[2016-12-16] MEDS: MAGNESIUM HYDROXIDE SUSP 30 ML UDCUP PO PRN (09:50)
--- NOTE | 2016-12-16 12:35 | Pathology Report from [facility] ---
[facility] – [place] ACCESSION # : [id number] PATIENT NAME : Elaine Machuca ORDERING DR : ALYSSA SANTOS MD CLINICAL HX: Severe hip arthritis - Avascular necrosis POST-OP DX: Same SPECIMEN INFO: Right femoral head GROSS DESCRIPTION: The specimen is received in formalin labeled with the patients name and consists of a focally degenerative femoral head measuring 5.0 x 5.0 x 5.0 cm with a large area of subchondral eburnation is seen measuring 4.0 x 4.0 cm. Cut surface is smooth. No softening appreciated. Received separately in the container is an aggregate of hemorrhagic bone and soft tissue measuring 13.0 x 3.4 cm. Stitcher Set Up Operator Automatic tissue submitted in one cassette following decalcification. DIAGNOSIS FOR ELAINE MACHUCA: RIGHT FEMORAL HEAD: Trabecular bone, necrotic marrow and focal necrotic bone consistent with clinical history. No evidence of malignancy. COLLECTED DATE: 12/14/2016 [facility] REPORT DATE: 12/16/2016 ELECTRONICALLY SIGNED BY: Aislinn Glass III, M.D. 12/16/2016 - 9:21:19 JUAN CARLOS
[2016-12-16] MEDS ORDERED: BISACODYL 10 MG SUPP RECTAL ONE (19:19)
[2016-12-16] MEDS: DOCUSATE SODIUM 100 MG CAPSULE PO PRN (20:58)
--- NOTE | 2016-12-16 20:59 | Hospitalist Progress Note ---
Hospitalist: Subjective Interval history: Pain is better controlled today Exam - Constitutional Vitals: Period Temp Pulse Resp BP Sys/Mckeon Pulse Ox Last 24 Hr 95.9 F-99.0 F 73-89 16-19 91-123/44-66 91-98 Exam: General: No Acute Distress HEENT: Normocephalic, atraumatic, Extra ocular movements intact Neck: Supple, No JVD Chest: Clear to auscultation B/L CV: S1 + S2 audible without murmur, gallop or rub Abd: soft, NT, Non-distended, BS + Ext: No edema Skin: No purpura, bruising or rash Rheumatologic: No Joint deformities Neurologic: o gross sensory deficits Results - Labs CBC & BMP: 12/16/16 04:33 12/15/16 04:35 - Impressions - Impressions Assessment and Plan (1) Avascular necrosis of bones of both hips status post surgery Status: Acute Current Visit: Yes (2) Osteoarthritis of hip Status: Acute Current Visit: Yes (3) Anemia of acute blood loss Status: Acute Current Visit: Yes She has been transfused today Specialty Discharge - Follow Up or Referrals Follow up with: Shawn Stacy Jr., MD [Physician] -
[2016-12-17 05:35] LABS: Basophils % 0.4 % (0.0-0.8); Eosinophils # 0.3 10*3/uL (0.0-0.87); Eosinophils % 4.8 % (0.00-10.9); Hematocrit 32.4 VOL% (35.7-47.0); Hemoglobin 11.1 GM/DL (12.0-16.0); Immature Granulocytes % 0.4 %; Immature Granulocytes Absolute 0.03 #; Lymphocytes # 1.4 10*3/uL (1.4-4.0); Lymphocytes % 20.6 % (21.3-54.2); Mean Corpuscular HGB Conc 34.3 GM/DL (32-36); Mean Corpuscular Hemoglobin 30 PG (27-34); Mean Corpuscular Volume 87.6 FL (87-102); Mean Platelet Volume 9.7 FL (9.6-12.0); Monocytes # 0.5 10*3/uL (0.11-0.8); Monocytes % 7.4 % (1.7-12.7); Neutrophils # 4.5 10*3/uL (1.4-7.4); Neutrophils % 66.4 % (38.7-73.9); Platelet Count 200 T/CUMM (130-400); Red Cell Distribution Width 12.9 % (9.3-17.3); White Blood Count 6.9 T/CUMM (4-12)
[2016-12-17 06:01] LABS: Calcium 7.9 MG/DL (8.5-10.1); Osmolality,Calculated 274.8 MOS/KG (273-304); Potassium 4.1 MMOL/L (3.5-5.1)
--- NOTE | 2016-12-17 06:39 | Pain Management Progress Note ---
Assessment and Plan (1) Severe hip pain Status: Acute Assessment and plan: Patient has severe hip pain due to osteonecrosis in both hips. We will reevaluate after orthopedics have seen her I would continue current medications for pain 12/14 continue current medications for pain at this time 12/15 continue the current pain treatment regimen at this time 12/16 recommend to continue current medications for pain until transferred or discharged 12/17 will sign off for now continue current medications of pain and follow-up in pain clinic as an outpatient Current Visit: Yes Pain - Subjective Interval history: Patient is overall doing better and pain is adequately controlled at this time patient is awaiting disposition about possible transfer. I will make an appointment to follow-up with me as an outpatient after discharge Exam - Constitutional Vitals: Period Temp Pulse Resp BP Sys/Mckeon Pulse Ox Last 24 Hr 97.1 F-99.0 F 75-89 16-19 91-123/44-66 92-98 General appearance: mild distress - Head Head exam: Present: normal inspection - Eye Eye exam: Present: EOMI Pupils: Present: OVIDIO - ENT ENT exam: Present: normal exam Ear exam: Present: intact Mouth exam: Present: normal external inspection - Neck Neck exam: Present: normal inspection - Respiratory Respiratory exam: Present: clear to auscultation bilaterally - Cardiovascular Cardiovascular exam: Present: RRR - GI/Abdominal GI/Abdominal exam: Present: normal bowel sounds - Extremities Exam Extremities exam: Present: other (Bilateral hips are tender) - Back Exam Back exam: Present: vertebral tenderness - Neurological Exam Neurological exam: Present: abnormal gait - Skin Skin exam: Present: dry Results - Labs CBC & BMP: 12/17/16 04:24 12/17/16 04:24 Lab Results: I have reviewed the past 24 hour labs Specialty Discharge - Follow Up or Referrals Follow up with: Shawn Stacy Jr., MD [Physician] -
[2016-12-17] MEDS: FONDAPARINUX 2.5 MG/0.5 ML SYRINGE SUBCUT SCH (07:43)
--- NOTE | 2016-12-17 09:16 | Orthopedic Progress Note ---
Assessment and Plan (1) Avascular necrosis of bones of both hips Status: Acute Current Visit: Yes (2) Arthrosis of hip Status: Acute Current Visit: Yes Orthopedics - Subjective Interval history: She is still progressing slowly with therapy. Dressing is clean, dry and intact. Right lower extremities neurovascularly unchanged. Hemoglobin is improved. Plan: Discharge to swing bed later today. Posterior hip precautions for 3 months. Daily dry dressing changes. Arrange for walker and bedside commode for home use. Wear GRACY hose for 1 month. Follow-up appointment in 4 weeks. Discontinue diana and Steri-Strip wound on December 24, 2016. Prescription for [place] 7.5 was written. Stop Arixtra when discharged from swing bed.. Exam - Constitutional Vitals: Period Temp Pulse Resp BP Sys/Mckeon Pulse Ox Last 24 Hr 97.1 F-99.0 F 75-90 16-19 91-123/44-66 92-98 Results - Labs CBC & BMP: 12/17/16 04:24 12/17/16 04:24 Specialty Discharge - Follow Up or Referrals Follow up with: Johnathan Castillo MD [Physician] - 12/31/16 9:45 am Shawn Stacy Jr., MD [Physician] -
[2016-12-17] MEDS: PANTOPRAZOLE 40 MG TABLET PO SCH (09:45)
[2016-12-17] MEDS: CITALOPRAM 20 MG TABLET PO SCH (09:45)
[2016-12-17] MEDS: GABAPENTIN 300 MG CAPSULE PO SCH ×3 (09:45→20:37)
[2016-12-17] MEDS: CELECOXIB 200 MG CAPSULE PO SCH (09:45)
[2016-12-17] MEDS: LISINOPRIL/HCTZ 20-25 MG TABLET PO SCH (09:45)
[2016-12-17] MEDS: oxyCODONE IR 5 MG TABLET PO PRN ×2 (11:24→23:07)
--- NOTE | 2016-12-17 18:48 | Hospitalist Progress Note ---
Hospitalist: Subjective Interval history: Pain is well controlled Exam - Constitutional Vitals: Period Temp Pulse Resp BP Sys/Mckeon Pulse Ox Last 24 Hr 96.9 F-97.8 F 79-90 17-20 105-142/51-66 92-97 Exam: General: No Acute Distress HEENT: Normocephalic, atraumatic, Extra ocular movements intact Neck: Supple, No JVD Chest: Clear to auscultation B/L CV: S1 + S2 audible without murmur, gallop or rub Abd: soft, NT, Non-distended, BS + Ext: No edema Skin: No purpura, bruising or rash Rheumatologic: No Joint deformities Neurologic: o gross sensory deficits Results - Labs CBC & BMP: 12/17/16 04:24 12/17/16 04:24 - Impressions Assessment and Plan (1) Avascular necrosis of bones of both hips status post surgery Status: Acute Current Visit: Yes (2) Osteoarthritis of hip Status: Acute Current Visit: Yes (3) Anemia of acute blood loss Status: Acute Current Visit: Yes Specialty Discharge - Follow Up or Referrals Follow up with: Johnathan Castillo MD [Physician] - 12/31/16 9:45 am Shawn Stacy Jr., MD [Physician] - 01/19/17 9:15 am
[2016-12-17] MEDS: DOCUSATE SODIUM 100 MG CAPSULE PO PRN (20:36)
[2016-12-17] MEDS: MAGNESIUM HYDROXIDE SUSP 30 ML UDCUP PO PRN (23:08)
[2016-12-18] MEDS: oxyCODONE IR 5 MG TABLET PO PRN (05:02)
[2016-12-18] MEDS: FONDAPARINUX 2.5 MG/0.5 ML SYRINGE SUBCUT SCH (08:37)
[2016-12-18] MEDS: LISINOPRIL/HCTZ 20-25 MG TABLET PO SCH (08:37)
[2016-12-18] MEDS: GABAPENTIN 300 MG CAPSULE PO SCH ×3 (08:37→20:53)
[2016-12-18] MEDS: CITALOPRAM 20 MG TABLET PO SCH (08:38)
[2016-12-18] MEDS: PANTOPRAZOLE 40 MG TABLET PO SCH (08:38)
[2016-12-18] MEDS: CELECOXIB 200 MG CAPSULE PO SCH (08:38)
--- NOTE | 2016-12-18 08:46 | Orthopedic Progress Note ---
Orthopedics - Subjective Interval history: This lady is alert oriented comfortable and stable. She is primarily awaiting transfer to another unit unit Recommendations: No change in the orthopedic plan Exam - Constitutional Vitals: Period Temp Pulse Resp BP Sys/Mckeon Pulse Ox Last 24 Hr 96.9 F-98.4 F 72-89 16-20 90-142/43-71 94-96 Results - Labs CBC & BMP: 12/17/16 04:24 12/17/16 04:24 Specialty Discharge - Follow Up or Referrals Follow up with: Johnathan Castillo MD [Physician] - 12/31/16 9:45 am Shawn Stacy Jr., MD [Physician] - 01/19/17 9:15 am
--- NOTE | 2016-12-18 14:44 | Hospitalist Progress Note ---
Hospitalist: Subjective Interval history: Pain is well controlled. Patient status post surgery for bilateral hip avascular necrosis Exam - Constitutional Vitals: Period Temp Pulse Resp BP Sys/Mckeon Pulse Ox Last 24 Hr 97.4 F-98.4 F 72-89 16-20 83-142/43-71 94-100 Exam: General: No Acute Distress HEENT: Normocephalic, atraumatic, Extra ocular movements intact Neck: Supple, No JVD Chest: Clear to auscultation B/L CV: S1 + S2 audible without murmur, gallop or rub Abd: soft, NT, Non-distended, BS + Ext: No edema Skin: No purpura, bruising or rash Rheumatologic: No Joint deformities Neurologic: o gross sensory deficits Results - Labs CBC & BMP: 12/17/16 04:24 12/17/16 04:24 - Impressions Assessment and Plan (1) Avascular necrosis of bones of both hips status post surgery Status: Acute Current Visit: Yes (2) Osteoarthritis of hip Status: Acute Current Visit: Yes (3) Anemia of acute blood loss Status: Acute Current Visit: Yes (4) Ess HTN Status: Acute Current Visit: Yes Her lisinopril and and hydrochlorothiazide were held as her blood pressure was a little borderline today. Discharge plan to swing bed, social media designer is working on placement Specialty Discharge - Follow Up or Referrals Follow up with: Johnathan Castillo MD [Physician] - 12/31/16 9:45 am Shawn Stacy Jr., MD [Physician] - 01/19/17 9:15 am
[2016-12-18] MEDS: MAGNESIUM HYDROXIDE SUSP 30 ML UDCUP PO PRN (20:53)
[2016-12-19] MEDS: oxyCODONE IR 5 MG TABLET PO PRN ×2 (06:05→16:52)
--- NOTE | 2016-12-19 07:51 | Orthopedic Progress Note ---
Orthopedics - Subjective Interval history: alert oriented and stable. Rec: no change in existing plans. See yesterday's note Exam - Constitutional Vitals: Period Temp Pulse Resp BP Sys/Mckeon Pulse Ox Last 24 Hr 97.4 F-98.0 F 73-86 17-20 83-105/43-52 96-100 Results - Labs CBC & BMP: 12/17/16 04:24 12/17/16 04:24 Specialty Discharge - Follow Up or Referrals Follow up with: Johnathan Castillo MD [Physician] - 12/31/16 9:45 am Shawn Stacy Jr., MD [Physician] - 01/19/17 9:15 am
[2016-12-19] MEDS: PANTOPRAZOLE 40 MG TABLET PO SCH (09:49)
[2016-12-19] MEDS: CITALOPRAM 20 MG TABLET PO SCH (09:49)
[2016-12-19] MEDS: FONDAPARINUX 2.5 MG/0.5 ML SYRINGE SUBCUT SCH (09:49)
[2016-12-19] MEDS: CELECOXIB 200 MG CAPSULE PO SCH (09:49)
[2016-12-19] MEDS: GABAPENTIN 300 MG CAPSULE PO SCH ×3 (09:49→20:19)
[2016-12-19] MEDS ORDERED: BISACODYL 10 MG SUPP RECTAL PRN (15:06)
[2016-12-19] MEDS ORDERED: BISACODYL 10 MG SUPP RECTAL ONE (15:06)
--- NOTE | 2016-12-19 18:00 | Hospitalist Progress Note ---
Hospitalist: Subjective Interval history: 76-year-old white female who was admitted with bilateral hip pain due to avascular necrosis. She is status post surgery and not ambulating much and felt to benefit from rehab placement. Reports some constipation today Exam - Constitutional Vitals: Period Temp Pulse Resp BP Sys/Mckeon Pulse Ox Last 24 Hr 97.0 F-98.0 F 73-86 17-20 101-120/49-64 96-99 Exam: General: No Acute Distress HEENT: Normocephalic, atraumatic, Extra ocular movements intact Neck: Supple, No JVD Chest: Clear to auscultation B/L CV: S1 + S2 audible without murmur, gallop or rub Abd: soft, NT, Non-distended, BS + Ext: No edema Skin: No purpura, bruising or rash Rheumatologic: No Joint deformities Neurologic: o gross sensory deficits Results - Labs CBC & BMP: 12/17/16 04:24 12/17/16 04:24 - Impressions Assessment and Plan (1) Avascular necrosis of bones of both hips status post surgery Status: Acute Current Visit: Yes (2) Osteoarthritis of hip Status: Acute Current Visit: Yes (3) Anemia of acute blood loss Status: Acute Current Visit: Yes (4) Ess HTN Status: Acute Current Visit: Yes Her lisinopril and and hydrochlorothiazide were held as her blood pressure was a little borderline yesterday. BP is much better today (5) Constipation Status: Acute Current Visit: Yes She is on laxatives and I ordered Dulcolax suppository as well Specialty Discharge - Follow Up or Referrals Follow up with: Johnathan Castillo MD [Physician] - 12/31/16 9:45 am Shawn Stacy Jr., MD [Physician] - 01/19/17 9:15 am
[2016-12-19] MEDS: APIXABAN 2.5 MG TABLET PO SCH (20:19)
[2016-12-20] MEDS: CELECOXIB 200 MG CAPSULE PO SCH (09:17)
[2016-12-20] MEDS: APIXABAN 2.5 MG TABLET PO SCH ×2 (09:17→20:56)
[2016-12-20] MEDS: GABAPENTIN 300 MG CAPSULE PO SCH ×3 (09:17→20:56)
[2016-12-20] MEDS: CITALOPRAM 20 MG TABLET PO SCH (09:17)
[2016-12-20] MEDS: PANTOPRAZOLE 40 MG TABLET PO SCH (09:17)
--- NOTE | 2016-12-20 14:47 | Orthopedic Progress Note ---
Assessment and Plan (1) Avascular necrosis of bones of both hips Status: Acute Current Visit: Yes (2) Arthrosis of hip Status: Acute Current Visit: Yes Orthopedics - Subjective Interval history: Still progressing slowly with therapy. RlE dressing dry. nv ok. Discharge planning. Mobilize with therapy. Exam - Constitutional Vitals: Period Temp Pulse Resp BP Sys/Mckeon Pulse Ox Last 24 Hr 96.4 F-97.8 F 66-86 16-20 95-122/48-64 98-99 Results - Labs CBC & BMP: 12/17/16 04:24 12/17/16 04:24 Specialty Discharge - Follow Up or Referrals Follow up with: Johnathan Castillo MD [Physician] - 12/31/16 9:45 am Shawn Stacy Jr., MD [Physician] - 01/19/17 9:15 am
--- NOTE | 2016-12-20 16:20 | Hospitalist Progress Note ---
Assessment and Plan (1) Avascular necrosis of bones of both hips Status: Acute Assessment and plan: Status post total hip replacement. No new events today. I coordinated care with case management specialist and we are attempting to place her with swing bed at [facility]. I will recheck electrolytes tomorrow. Current Visit: Yes Hospitalist: Subjective Interval history: The patient has been participating with physical therapy. She was up out of bed in chair when I saw her today. Her therapist said she is making progress. I coordinate care with the physical therapist. Exam - Constitutional Vitals: Period Temp Pulse Resp BP Sys/Mckeon Pulse Ox Last 24 Hr 96.4 F-97.3 F 66-77 16-20 95-122/48-63 98-99 Exam: The patient is in moderate distress. The chest is clear and heart has regular rate and rhythm Abdomen soft Results - Labs CBC & BMP: 12/17/16 04:24 12/17/16 04:24 Lab Results: I have reviewed the past 24 hour labs Specialty Discharge - Follow Up or Referrals Follow up with: Johnathan Castillo MD [Physician] - 12/31/16 9:45 am Shawn Stacy Jr., MD [Physician] - 01/19/17 9:15 am
[2016-12-20] MEDS: MYLANTA/LIDO VISC 2:1 300 ML BOTTLE SWISH/SWAL PRN (22:09)
--- NOTE | 2016-12-21 06:11 | Pain Management Progress Note ---
Assessment and Plan (1) Severe hip pain Status: Acute Assessment and plan: Patient has severe hip pain due to osteonecrosis in both hips. We will reevaluate after orthopedics have seen her I would continue current medications for pain 12/14 continue current medications for pain at this time 12/15 continue the current pain treatment regimen at this time 12/16 recommend to continue current medications for pain until transferred or discharged 12/17 will sign off for now continue current medications of pain and follow-up in pain clinic as an outpatient 12/21 continue current medications for pain Current Visit: Yes Pain - Subjective Interval history: The patient seems stable from the pain management standpoint and no new issues are noted Exam - Constitutional Vitals: Period Temp Pulse Resp BP Sys/Mckeon Pulse Ox Last 24 Hr 95.5 F-97.6 F 66-87 16-20 102-131/49-84 92-99 General appearance: no acute distress - Head Head exam: Present: normal inspection - Eye Eye exam: Present: EOMI Pupils: Present: OVIDIO - ENT ENT exam: Present: normal exam Ear exam: Present: intact Mouth exam: Present: normal external inspection - Neck Neck exam: Present: normal inspection - Respiratory Respiratory exam: Present: clear to auscultation bilaterally - Cardiovascular Cardiovascular exam: Present: RRR - GI/Abdominal GI/Abdominal exam: Present: normal bowel sounds - Extremities Exam Extremities exam: Present: other (Bilateral hips are tender) - Back Exam Back exam: Present: vertebral tenderness - Neurological Exam Neurological exam: Present: abnormal gait - Skin Skin exam: Present: normal color Results - Labs CBC & BMP: 12/17/16 04:24 12/17/16 04:24 Lab Results: I have reviewed the past 24 hour labs Specialty Discharge - Follow Up or Referrals Follow up with: Johnathan Castillo MD [Physician] - 12/31/16 9:45 am Shawn Stacy Jr., MD [Physician] - 01/19/17 9:15 am
[2016-12-21 07:24] LABS: Basophils % 0.5 % (0.0-0.8); Eosinophils # 0.3 10*3/uL (0.0-0.87); Eosinophils % 5.8 % (0.00-10.9); Hematocrit 31.3 VOL% (35.7-47.0); Hemoglobin 10.2 GM/DL (12.0-16.0); Immature Granulocytes % 1.6 %; Immature Granulocytes Absolute 0.09 #; Lymphocytes # 1.4 10*3/uL (1.4-4.0); Lymphocytes % 24.3 % (21.3-54.2); Mean Corpuscular HGB Conc 32.6 GM/DL (32-36); Mean Corpuscular Hemoglobin 30 PG (27-34); Mean Corpuscular Volume 91.3 FL (87-102); Mean Platelet Volume 9.5 FL (9.6-12.0); Monocytes # 0.7 10*3/uL (0.11-0.8); Monocytes % 11.9 % (1.7-12.7); Neutrophils # 3.2 10*3/uL (1.4-7.4); Neutrophils % 55.9 % (38.7-73.9); Platelet Count 291 T/CUMM (130-400); Red Blood Count 3.43 MC/CUMM (3.8-5.5); Red Cell Distribution Width 12.6 % (9.3-17.3); White Blood Count 5.7 T/CUMM (4-12)
[2016-12-21 07:48] LABS: Calcium 8.6 MG/DL (8.5-10.1); Magnesium 2.2 MG/DL (1.8-2.4); Osmolality,Calculated 277.8 MOS/KG (273-304); Potassium 4.7 MMOL/L (3.5-5.1)
[2016-12-21] MEDS: MYLANTA/LIDO VISC 2:1 300 ML BOTTLE SWISH/SWAL PRN ×4 (09:00→21:40)
[2016-12-21] MEDS: GABAPENTIN 300 MG CAPSULE PO SCH ×3 (09:39→21:39)
[2016-12-21] MEDS: CITALOPRAM 20 MG TABLET PO SCH (09:39)
[2016-12-21] MEDS: APIXABAN 2.5 MG TABLET PO SCH ×2 (09:39→21:39)
[2016-12-21] MEDS: CELECOXIB 200 MG CAPSULE PO SCH (09:39)
[2016-12-21] MEDS: PANTOPRAZOLE 40 MG TABLET PO SCH (09:39)
--- NOTE | 2016-12-21 11:24 | Orthopedic Progress Note ---
Assessment and Plan (1) Avascular necrosis of bones of both hips Status: Acute Current Visit: Yes (2) Arthrosis of hip Status: Acute Current Visit: Yes Orthopedics - Subjective Interval history: Elaine Machuca is able to get to chair, but is not doing much more. It appears that her back and left hip seem to be major limitors. Dressing dry. nv ok. Mobilize with therapy. Swing bed placement. Exam - Constitutional Vitals: Period Temp Pulse Resp BP Sys/Mckeon Pulse Ox Last 24 Hr 95.5 F-97.6 F 71-87 16-18 102-131/49-84 92-96 Results - Labs CBC & BMP: 12/21/16 06:46 12/21/16 06:46 Specialty Discharge - Follow Up or Referrals Follow up with: Johnathan Castillo MD [Physician] - 12/31/16 9:45 am Shawn Stacy Jr., MD [Physician] - 01/19/17 9:15 am
--- NOTE | 2016-12-21 13:48 | Hospitalist Progress Note ---
Assessment and Plan (1) Avascular necrosis of bones of both hips Status: Acute Assessment and plan: Status post total hip replacement. No new events today. I coordinated care with continuous pillowcase cutter and we are attempting to place her with swing bed at [facility]. Current Visit: Yes Hospitalist: Subjective Interval history: The patient is resting quietly at the side of bed. She is making slow progress with physical therapy. The patient has contralateral hip pain which reduces her endurance. Exam - Constitutional Vitals: Period Temp Pulse Resp BP Sys/Mckeon Pulse Ox Last 24 Hr 95.5 F-97.6 F 71-87 16-18 102-131/49-84 92-97 Exam: The patient is in moderate distress. The chest is clear and heart has regular rate and rhythm Abdomen soft Results - Labs CBC & BMP: 12/21/16 06:46 12/21/16 06:46 Lab Results: I have reviewed the past 24 hour labs Specialty Discharge - Follow Up or Referrals Follow up with: Johnathan Castillo MD [Physician] - 12/31/16 9:45 am Shawn Stacy Jr., MD [Physician] - 01/19/17 9:15 am
--- NOTE | 2016-12-22 05:49 | Pain Management Progress Note ---
Assessment and Plan (1) Severe hip pain Status: Acute Assessment and plan: Patient has severe hip pain due to osteonecrosis in both hips. We will reevaluate after orthopedics have seen her I would continue current medications for pain 12/14 continue current medications for pain at this time 12/15 continue the current pain treatment regimen at this time 12/16 recommend to continue current medications for pain until transferred or discharged 12/17 will sign off for now continue current medications of pain and follow-up in pain clinic as an outpatient 12/21 continue current medications for pain 12/22 agree with swing bed placement Current Visit: Yes Pain - Subjective Interval history: Patient is comfortable and pain treatment regimen and I agree with placement in swing bed unit Exam - Constitutional Vitals: Period Temp Pulse Resp BP Sys/Mckeon Pulse Ox Last 24 Hr 96.7 F-97.4 F 69-81 16-20 102-130/57-66 94-97 General appearance: no acute distress - Head Head exam: Present: normal inspection - Eye Eye exam: Present: EOMI Pupils: Present: OVIDIO - ENT ENT exam: Present: normal exam Ear exam: Present: intact Mouth exam: Present: normal external inspection - Neck Neck exam: Present: normal inspection - Respiratory Respiratory exam: Present: clear to auscultation bilaterally - Cardiovascular Cardiovascular exam: Present: RRR - GI/Abdominal GI/Abdominal exam: Present: normal bowel sounds - Extremities Exam Extremities exam: Present: other (Bilateral hips are tender) - Back Exam Back exam: Present: vertebral tenderness - Neurological Exam Neurological exam: Present: abnormal gait - Skin Skin exam: Present: normal color Results - Labs CBC & BMP: 12/21/16 06:46 12/21/16 06:46 Lab Results: I have reviewed the past 24 hour labs Specialty Discharge - Follow Up or Referrals Follow up with: Johnathan Castillo MD [Physician] - 12/31/16 9:45 am Shawn Stacy Jr., MD [Physician] - 01/19/17 9:15 am
[2016-12-22] MEDS: CELECOXIB 200 MG CAPSULE PO SCH (08:23)
[2016-12-22] MEDS: APIXABAN 2.5 MG TABLET PO SCH ×2 (08:23→21:19)
[2016-12-22] MEDS: CITALOPRAM 20 MG TABLET PO SCH (08:23)
[2016-12-22] MEDS: PANTOPRAZOLE 40 MG TABLET PO SCH (08:23)
[2016-12-22] MEDS: GABAPENTIN 300 MG CAPSULE PO SCH ×3 (08:23→21:19)
[2016-12-22] MEDS: MYLANTA/LIDO VISC 2:1 300 ML BOTTLE SWISH/SWAL PRN ×2 (08:25→21:22)
--- NOTE | 2016-12-22 09:12 | Hospitalist Progress Note ---
Assessment and Plan (1) Avascular necrosis of bones of both hips Status: Acute Assessment and plan: Status post total hip replacement. No new events today. I coordinated care with family service caseworker and we are attempting to place her with swing bed at [facility]. Current Visit: Yes Hospitalist: Subjective Interval history: The patient continues with physical therapy. She is making slow steady progress. The patient complains of contralateral hip pain. Exam - Constitutional Vitals: Period Temp Pulse Resp BP Sys/Mckeon Pulse Ox Last 24 Hr 96.8 F-97.4 F 69-81 16-20 102-130/51-66 94-97 Exam: The patient is in moderate distress. The chest is clear and heart has regular rate and rhythm Abdomen soft Results - Labs CBC & BMP: 12/21/16 06:46 12/21/16 06:46 Lab Results: I have reviewed the past 24 hour labs Specialty Discharge - Follow Up or Referrals Follow up with: Johnathan Castillo MD [Physician] - 12/31/16 9:45 am Shawn Stacy Jr., MD [Physician] - 01/19/17 9:15 am
--- NOTE | 2016-12-22 09:25 | Orthopedic Progress Note ---
Assessment and Plan (1) Avascular necrosis of bones of both hips Status: Acute Current Visit: Yes (2) Arthrosis of hip Status: Acute Current Visit: Yes Orthopedics - Subjective Interval history: No changes. Still looking for swing bed. Dressing clean, dry and intact. Right lower extremities neurovascularly unchanged. Plan: Continue with physical therapy. Discharge planning. Exam - Constitutional Vitals: Period Temp Pulse Resp BP Sys/Mckeon Pulse Ox Last 24 Hr 96.8 F-97.4 F 69-81 16-20 102-130/51-66 94-97 Results - Labs CBC & BMP: 12/21/16 06:46 12/21/16 06:46 Specialty Discharge - Follow Up or Referrals Follow up with: Johnathan Castillo MD [Physician] - 12/31/16 9:45 am Shawn Stacy Jr., MD [Physician] - 01/19/17 9:15 am
--- NOTE | 2016-12-23 05:08 | Pain Management Progress Note ---
Assessment and Plan (1) Severe hip pain Status: Acute Assessment and plan: Patient has severe hip pain due to osteonecrosis in both hips. We will reevaluate after orthopedics have seen her I would continue current medications for pain 12/14 continue current medications for pain at this time 12/15 continue the current pain treatment regimen at this time 12/16 recommend to continue current medications for pain until transferred or discharged 12/17 will sign off for now continue current medications of pain and follow-up in pain clinic as an outpatient 12/21 continue current medications for pain 12/22 agree with swing bed placement 12/23 agree with current plan of care for pain management Current Visit: Yes Pain - Subjective Interval history: Patient is still awaiting placement for swing bed. Currently taking Celebrex gabapentin and [place] as needed for pain patient is awake alert conversant not confused and seems satisfied with pain management treatment plan Exam - Constitutional Vitals: Period Temp Pulse Resp BP Sys/Mckeon Pulse Ox Last 24 Hr 96.9 F-98.1 F 72-80 16-20 107-140/51-78 95-97 General appearance: no acute distress - Head Head exam: Present: normal inspection - Eye Eye exam: Present: EOMI Pupils: Present: OVIDIO - ENT ENT exam: Present: normal exam Ear exam: Present: intact Mouth exam: Present: normal external inspection - Neck Neck exam: Present: normal inspection - Respiratory Respiratory exam: Present: clear to auscultation bilaterally - Cardiovascular Cardiovascular exam: Present: RRR - GI/Abdominal GI/Abdominal exam: Present: normal bowel sounds - Extremities Exam Extremities exam: Present: other (Bilateral hips are tender to palpation) - Back Exam Back exam: Present: normal inspection - Neurological Exam Neurological exam: Present: abnormal gait - Skin Skin exam: Present: normal color Results - Labs CBC & BMP: 12/21/16 06:46 12/21/16 06:46 Lab Results: I have reviewed the past 24 hour labs Specialty Discharge - Follow Up or Referrals Follow up with: Johnathan Castillo MD [Physician] - 12/31/16 9:45 am Shawn Stacy Jr., MD [Physician] - 01/19/17 9:15 am
[2016-12-23] MEDS: CITALOPRAM 20 MG TABLET PO SCH (08:24)
[2016-12-23] MEDS: APIXABAN 2.5 MG TABLET PO SCH (08:24)
[2016-12-23] MEDS: CELECOXIB 200 MG CAPSULE PO SCH (08:24)
[2016-12-23] MEDS: PANTOPRAZOLE 40 MG TABLET PO SCH (08:25)
[2016-12-23] MEDS: GABAPENTIN 300 MG CAPSULE PO SCH ×2 (08:25→14:11)
--- NOTE | 2016-12-23 11:47 | Discharge Summary ---
Hospital Course - Hospital Course Hospital Course: The patient is a 76-year-old lady who was admitted to the hospital for elective right total hip arthroplasty on account of avascular necrosis of the bilateral hips. The patient has chronic pain and was seen by the chronic pain physician. The patient is cooperative with physical therapy and ready for transfer to [facility] today. The patient has not had any complications during her hospital course. On the date of discharge, chest is clear, heart has regular rate and rhythm, abdomen soft. The patient is a former smoker and was given 4 minutes tobacco avoidance education and encouragement not to restart smoking. The patient's medicines were reconciled on admission and again upon discharge. On the date of discharge there were 32 minutes required for coordination of care , prescription writing, and coordinating with correctional case manager. - Time spent with patient Time with patient DS: Greater than 30 minutes Diagnosis - Discharge Diagnosis (1) Avascular necrosis of bones of both hips Status: Chronic Specialty Discharge - Follow Up or Referrals Follow up with: Johnathan Castillo MD [Physician] - 12/31/16 9:45 am Shawn Stacy Jr., MD [Physician] - 01/19/17 9:15 am Discharge Plan - Discharge Data Disposition: Disch/Xfer-Ip Rehab Fac Condition at Discharge: Stable Discharge Diet: heart healthy Weight Bearing at Discharge: weight bear as tolerated - Discharge Medications New Celecoxib [Celebrex] 200 mg PO DAILY capsule Magnesium Hydroxide Susp [Milk of Magnesia] 30 ml PO Q6H PRN PRN Reason: Constipation Pantoprazole Tab [Protonix Tab] 40 mg PO DAILY tablet Apixaban [Eliquis] 2.5 mg PO BID tablet HYDROcodone/ACETAMIN 7.5-325 [Dexter 7.5-325] 1 tablet PO Q4H PRN #30 tablet PRN Reason: Pain Moderate (4-7) Continue Albuterol Sulfate [Proair HFA] 2 puff INH Q4H PRN PRN Reason: Shortness Of Breath/Wheezing Aspirin [Ecotrin] 81 mg PO DAILY Gabapentin 300 mg PO TID Pantoprazole Tab [Protonix Tab] 40 mg PO DAILY Citalopram Hydrobromide [Citalopram HBr] 20 mg PO DAILY rOPINIRole [Requip] 4 mg PO BEDTIME PRN PRN Reason: RLS DULoxetine [Cymbalta] 30 mg PO BID Discontinued Lisinopril/Hydrochlorothiazide [Lisinopril-Hctz 20-25 mg Tab] 1 each PO DAILY - Follow Up or Referral Follow Up: Johnathan Castillo MD [Physician] - 12/31/16 9:45 am Shawn Stacy Jr., MD [Physician] - 01/19/17 9:15 am - Forms/Instructions Instructions: Total Hip Replacement (DC) Exam - Constitutional Vitals: Period Temp Pulse Resp BP Sys/Mckeon Pulse Ox Last 24 Hr 96.9 F-99.1 F 72-87 16-20 114-140/52-78 92-97 DS: Provider Date of admission: 12/13/16 14:33 Primary care physician: . No PCP Attending physician on admission: Beto Beard CNP Consults: 12/12/16 15:17 Consult to Physician [CONS] Routine Comment: Consulting Provider: Shawn Stacy Jr. Consulting Provider Notified: Yes When should Consulting Provider be notified: Now Person Notified: dr. stacy saw Date Notified: 12/13/16 Time Notified: 07:47 Consult Notification Comment: Spoke with Dr Zacarias notify Dr Stacy in am yenny called with room number 12/12/16 15:22 Consult to Case Mgmt/Social Srvs [CONS] Routine Reason for Case Mgmt/Social Srvs: Discharge Planning 12/12/16 16:17 Consult to Physician [CONS] Routine Comment: Consulting Provider: Johnathan Castillo Consulting Provider Notified: Yes When should Consulting Provider be notified: In am Person Notified: dr. castillo saw Date Notified: 12/13/16 Time Notified: 06:40 Consult Notification Comment: Patient states she has never seen Dr Box before but has a scheduled appointment with him the December ( Tuesday) 12/12/16 19:17 Consult to Dietitian [CONS] Routine Reason for Dietitian: Other Consult Comment: admission assessment 12/14/16 13:42 Consult to Occupational Therapy [CONS] Routine Reason for Occupational Therapy: Evaluate and Treat Consult Comment: ADL's Consult to Physical Therapy [CONS] Routine Reason for Physical Therapy: Evaluate and Treat Gait Training Consult Comment: wbat, hip precautions Discharging clinician: José Miguel Nelson MD
[2016-12-23 16:26] VITALS: BP 133/61
== END 2016-12-23 16:25 | DRG 470 ==
LOC: EDBD → EDUNIT# → N.ED 13:20 → N.EDINP 15:17 → SUATTDRO 15:17 → INTOOBSV 15:17 → N.3E 16:31 → SUATTDRO 12-13 14:33
PROVIDERS: ADMIT Nurse Practitioner; ATTEND Internal Medicine